=== PATIENT | female | born 2000 | race Two or more races ===

== ENCOUNTER 2024-09-03 11:02 | Outpatient (RCR) | payer MEDICAID, SELFPAY ==
--- NOTE | 2024-07-23 09:32 | XR_ITS ---
Examination: Biophysical profile, ultrasound Date and time of exam: July 23, 2024 0957 hours INDICATIONS: Diagnosis poor growth Technique: Multiple transabdominal sonographic images of the pelvis abdomen obtained. Attention is directed to the breathing movement, gross body movement, amniotic fluid volume and tone. Findings: Amniotic fluid index 8.8 cm Total biophysical profile is 8 of 8. breathing movement is 2. Gross body movement is 2. tone is 2. Qualitative amniotic fluid volume is 2 Impression: Biophysical profile is 8 of 8.
[2024-07-23 10:13] VITALS: BP 100/60; PULSE 73; RESP 18; TEMP 36.8
--- NOTE | 2024-07-27 08:57 | XR_ITS ---
Examination: Biophysical profile, ultrasound Date and time of exam: July 27, 2024 0859 hours INDICATIONS: Diagnosis intrauterine growth retardation Technique: Multiple transabdominal sonographic images of the pelvis abdomen obtained. Attention is directed to the breathing movement, gross body movement, amniotic fluid volume and tone. Findings: Amniotic fluid index 13.7 cm Total biophysical profile is 8 of 8. breathing movement is 2. Gross body movement is 2. tone is 2. Qualitative amniotic fluid volume is 2 Impression: Biophysical profile is 8 of 8.
[2024-07-27 09:24] VITALS: BP 107/62; PULSE 88; RESP 16; TEMP 36.8
--- NOTE | 2024-07-30 09:07 | XR_ITS ---
Examination: Biophysical profile, ultrasound Date and time of exam: July 30, 2024 0911 hours INDICATIONS: Diagnosis intrauterine growth retardation Technique: Multiple transabdominal sonographic images of the pelvis abdomen obtained. Attention is directed to the breathing movement, gross body movement, amniotic fluid volume and tone. Findings: Amniotic fluid index 10.1 cm Total biophysical profile is 8 of 8. breathing movement is 2. Gross body movement is 2. tone is 2. Qualitative amniotic fluid volume is 2 Impression: Biophysical profile is 8 of 8.
[2024-07-30 09:35] VITALS: BP 98/61; PULSE 96; RESP 16; TEMP 36.7
--- NOTE | 2024-08-03 09:05 | XR_ITS ---
Examination: Biophysical profile, ultrasound Date and time of exam: August 03, 2024 0937 hours INDICATIONS: Poor growth diagnosis Technique: Multiple transabdominal sonographic images of the pelvis abdomen obtained. Attention is directed to the breathing movement, gross body movement, amniotic fluid volume and tone. Findings: Amniotic fluid index 10.3 cm Total biophysical profile is 8 of 8. breathing movement is 2. Gross body movement is 2. tone is 2. Qualitative amniotic fluid volume is 2 Impression: Biophysical profile is 8 of 8.
[2024-08-03 10:05] VITALS: BP 109/61; PULSE 72; RESP 16; TEMP 36.7
--- NOTE | 2024-08-13 08:50 | XR_ITS ---
Examination: Biophysical profile, ultrasound Date and time of exam: August 13, 2024 0858 hours INDICATIONS: Poor growth Technique: Multiple transabdominal sonographic images of the pelvis abdomen obtained. Attention is directed to the breathing movement, gross body movement, amniotic fluid volume and tone. Findings: Amniotic fluid index 13.6 cm Total biophysical profile is 8 of 8. breathing movement is 2. Gross body movement is 2. tone is 2. Qualitative amniotic fluid volume is 2 Impression: Biophysical profile is 8 of 8.
[2024-08-13 09:30] VITALS: BP 93/50; PULSE 88; RESP 16; TEMP 36.7
--- NOTE | 2024-08-20 09:09 | XR_ITS ---
Examination: Biophysical profile, ultrasound Date and time of exam: August 20, 2024 1006 hours INDICATIONS: Diagnosis for growth Technique: Multiple transabdominal sonographic images of the pelvis abdomen obtained. Attention is directed to the breathing movement, gross body movement, amniotic fluid volume and tone. Findings: Amniotic fluid index 8.6 cm Total biophysical profile is 8 of 8. breathing movement is 2. Gross body movement is 2. tone is 2. Qualitative amniotic fluid volume is 2 Impression: Biophysical profile is 8 of 8.
[2024-08-20 10:20] VITALS: BP 105/49; PULSE 81; RESP 16; TEMP 36.8
--- NOTE | 2024-08-24 09:19 | XR_ITS ---
Examination: Biophysical profile, ultrasound Date and time of exam: August 24, 2024 0935 hours INDICATIONS: Poor growth Technique: Multiple transabdominal sonographic images of the pelvis abdomen obtained. Attention is directed to the breathing movement, gross body movement, amniotic fluid volume and tone. Findings: Amniotic fluid index 8.7 cm Total biophysical profile is 8 of 8. breathing movement is 2. Gross body movement is 2. tone is 2. Qualitative amniotic fluid volume is 2 Impression: Biophysical profile is 8 of 8.
[2024-08-24 10:12] VITALS: BP 109/66; PULSE 80; RESP 16; TEMP 36.6
--- NOTE | 2024-08-31 08:59 | XR_ITS ---
Examination: Biophysical profile, ultrasound Date and time of exam: August 31, 2024 at 0905 hours INDICATIONS: Poor growth diagnosis Technique: Multiple transabdominal sonographic images of the pelvis abdomen obtained. Attention is directed to the breathing movement, gross body movement, amniotic fluid volume and tone. Findings: Amniotic fluid index 9.3 cm Total biophysical profile is 8 of 8. breathing movement is 2. Gross body movement is 2. tone is 2. Qualitative amniotic fluid volume is 2 Impression: Biophysical profile is 8 of 8.
[2024-08-31 09:39] VITALS: BP 94/45; PULSE 96; RESP 16; TEMP 36.7
--- NOTE | 2024-09-03 11:19 | XR_ITS ---
Examination: Biophysical profile, ultrasound Date and time of exam: September 03, 2024 1142 hours INDICATIONS: Diagnosis poor growth Technique: Multiple transabdominal sonographic images of the pelvis abdomen obtained. Attention is directed to the breathing movement, gross body movement, amniotic fluid volume and tone. Findings: Amniotic fluid index 13.2 cm Total biophysical profile is 8 of 8. breathing movement is 2. Gross body movement is 2. tone is 2. Qualitative amniotic fluid volume is 2 Impression: Biophysical profile is 8 of 8.
[2024-09-03 12:12] VITALS: BP 105/54; PULSE 78; RESP 16; TEMP 36.7
== END 2024-09-03 23:59 | disposition home or self-care (01) ==
LOC: S4S1 11:02
PROVIDERS: Referring Provider Nurse Practitioner Women's Health; Visit Provider Nurse Practitioner Women's Health
DX: O36.5930 Maternal care for other known or suspected poor fetal growth, third trimester, not applicable or unspecified (principal); Z3A.39 39 weeks gestation of pregnancy
CPT/HCPCS: 59025; 76819

== ENCOUNTER 2024-09-03 16:33 | Inpatient (IN) | payer MEDICAID, SELFPAY ==
[2024-09-03] VITALS (10 sets, daily range): BP systolic 0–114; BP diastolic 0–67; PULSE 65–95; RESP 18; TEMP 36.8–36.9; BMI 24.0
[2024-09-03 18:06] LABS: Basophils % (Auto) 0 % (0-2.5); Eosinophils # (Auto) 0.1 Thou/mm3 (0.0-0.5); Eosinophils % (Auto) 2 % (0-10); Hematocrit 31.3 % (36.0-46.0); Hemoglobin 10.7 g/dL (12.0-16.0); Immature Granulocytes % (Auto) 1 % (0-0); Immature Granulocytes Auto 0.04 Thou/mm3 (0.00-0.00); Lymphocytes # (Auto) 1.2 Thou/mm3 (1.0-4.8); Lymphocytes % (Auto) 18 % (10-50); Mean Corpuscular HGB Conc 34.2 g/dl (31.0-37.0); Mean Corpuscular Hemoglobin 30.4 pg (25.0-35.0); Mean Corpuscular Volume 89 fL (80-100); Monocytes # (Auto) 0.5 Thou/mm3 (0.0-0.8); Monocytes % (Auto) 7 % (0-12); Neutrophils % (Auto) 73 % (37-80); Nucleated Red Blood Cell % 0 /100 WBC (0); Platelet Count 259 Thou/mm3 (140-440); RDW Standard Deviation 42.5 fL (36.4-46.3); Red Blood Count 3.52 Miln/mm3 (4.00-5.20); White Blood Count 6.9 Thou/mm3 (3.6-11.0)
--- NOTE | 2024-09-03 18:35 | XR_ITS ---
Examination: age Limited Technique: Limited transabdominal sonographic images pelvis Exam date and time: September 03, 20242021 hrs. Indications: Pelvic contractions beginning 3 days ago Findings: Viable intrauterine gestation cephalic presentation Estimated weight 2888.6 g Cardiac motion 153 BPM Estimated age 36 weeks 6 days Impression: Viable intrauterine gestation cephalic presentation
[2024-09-03 18:49] LABS: Amphetamine/Metham Scrn,Ur OB Negative (Negative); Benzoylecgonine Screen, Ur OB Negative (Negative); Opiate Screen,Urine OB Negative (Negative); THC Screen,Urine OB Negative (Negative)
[2024-09-03 19:53] LABS: Syphilis Nonreactive (Nonreactive)
--- NOTE | 2024-09-03 20:21 | PD.LDHP ---
Documentation for date of: 09/03/24 OB Labor/Induct. HPI History of Present Illness Chief complaint: 24 y/o 39w 5d presents to L&D for IOL due to SGA : 2 Para: 1 Term pregnancies: 1 pregnancies: 0 Living children: 1 History of Abortions: Spontaneous and Elective: 0 History of Vaginal deliveries: 1 History of sections: No History of : No Date of last menstrual period: 11/30/23 ANGELO: 09/05/24 Gestational Age (weeks): 39 Gestational Age (days): 5 Gestational age based on last menstrual period: 39 Indication for induction: medical complication History of present illness: 24 y/o 39w 5d presents to L&D for IOL due to SGA. Fetus was IUGR at 9%ile for a long time, last sono by [facility] showed some growth improvement to 16%ile. Biweekly NST/BPP started at 32 weeks. [facility] recommended delivery at 39 weeks. GBS is neg. EFW 2600g History of Present Dating criteria: LMP confirmed by 1st trimester US Adequate Care: No Ultrasounds: normal 1st trimester US and abnormal US findings (IUGR at 9%ile and at 34 weeks growth improved to 16%ile) Obstetrical complications: growth restriction Labs Maternal Blood Type: O Pos Labs: Negative: RPR, Hepatitis B, Rubella Titre, HIV, Chlamydia, Gonorrhea and Group Beta Strep and Unknown: Herpes Type 1, Herpes Type 2 and Covid-19 Review of Systems Review of Systems Systems Reviewed: All systems reviewed, normal except as documented Past Medical History Surgical History SURGICAL: Negative Section Meds Home Medications and Allergies Home Medications ?Medication ?Instructions ?Recorded ?Confirmed ?Type No Known Home Medications 09/03/24 09/03/24 History Allergies Allergy/AdvReac Type Severity Reaction Status Date / Time No Known Allergies Allergy Verified 09/03/24 17:00 OB Exam Physical Exam Vital signs: Temp Pulse Resp BP 98.3 F 69 18 114/64 09/03/24 19:00 09/03/24 19:58 09/03/24 17:10 09/03/24 19:58 Constitutional Constitutional: no acute distress Routine HEENT Exam Head: Present normocephalic and atraumatic Eye: Present EOMI, PERRL and normal accommodation ENT: Present mucous membranes moist Routine Neck Exam Neck: Present supple, full ROM and trachea midline Routine Respiratory Exam Respiratory: Absent respiratory distress Routine Cardiovascular Exam Cardiovascular: Present RRR Routine Abdominal Exam Abdominal: Present soft and normoactive bowel sounds Comments: Gravid uterus EFW 2600g Routine Exam External: Present normal urethra appearance; Absent lesions Detailed Labor and Delivery Exam Dilation (cm): 1 Effacement (%): 60 Cervix position: posterior station: -3 Consistency: soft Presentation: Vertex Membranes: intact Baseline heart rate: 130 monitor accelerations: 15x15 monitor decelerations: None halfway variability: Moderate (11-25) Contraction frequency (min): irregular Routine Extremities Exam Extremities: Present full ROM Routine Back/Spine/Pelvis Exam Back/Spine: Present full ROM Routine Skin Exam Skin: Present intact, dry and warm Routine Neurological Exam Neurological: Present alert, oriented X3 and CN II-XII intact Routine Psychiatric Exam Psychiatric: Present normal affect and normal thought process OB Results Labs 09/03/24 17:50 Labs: Short CBC 09/03/24 Range/Units 17:50 WBC 6.9 (3.6-11.0) Thou/mm3 Hgb 10.7 L (12.0-16.0) g/dL Hct 31.3 L (36.0-46.0) % Plt Count 259 (140-440) Thou/mm3 OB Assessment & Plan Assessment and Plan (1) Encounter for induction of labor: Status: Acute (2) Small for gestational age fetus affecting management of mother in cornejo in third trimester: Status: Acute (3) Anemia affecting in third trimester: Status: Acute (4) with 39 completed weeks gestation: Status: Acute (5) Rubella non-immune status, antepartum: Status: Acute Additional Plan Induction method: other (Cervidil) Plan: induction, anticipate NVD and consult prn Additional Plan Comment: Routine admit orders Ordered US for position and EFW Consult anesthesia for an epidural Continuous EFM Ok to eat a regular diet until more active labor
[2024-09-03] MEDS: DINOPROSTONE 10 MG VAG.SUPP VAGINAL (22:59)
[2024-09-03] MEDS: RINGERS LACTATED 1000 ML 1,000 ML 100 ML IV (23:03)
[2024-09-04] VITALS (170 sets, daily range): BP systolic 0–184; BP diastolic 0–139; PULSE 52–136; RESP 16–18; TEMP 36.8–37.1; O2SAT 79–100
[2024-09-04] MEDS: TERBUTALINE SULF INJ 1 MG/ML VIAL 0.25 MG SC (05:44)
--- NOTE | 2024-09-04 06:09 | PD.LDPN ---
Documentation for date of: 09/04/24 OB Labor Progress Note Pain Control Pain control: epidural Pelvic Exam Dilation (cm): 4 Effacement (%): 80 station: 0 Amniotic membrane status: Ruptured (AROM- clear) Contractions Monitor mode: External Contraction frequency: 2-3 Contraction duration: 40-60 Contraction intensity: Moderate Status status: Category l Assessment and Plan Assessment: induction ongoing Plan OB labor note: begin Pitocin augmentation (per protocol) Comments: Pt is comfortable with epidural AROM performed- clear fluids Anticipate
[2024-09-04] MEDS: RINGERS LACTATED 1000 ML 1,000 ML 100 ML IV (09:58)
--- NOTE | 2024-09-04 12:05 | OBDSUM_ITS ---
Data (Lynn) Data Hx Section: No Maternal Blood Type: O Pos Rubella Titre: Negative RPR: Non-reactive Labs: Negative: RPR, Hepatitis B, HIV, Chlamydia, Gonorrhea and Group Beta Strep and Unknown: Herpes Type 1 and Herpes Type 2 : 2 Para: 1 Term: 0 : 0 Livin : 0 Delivery Data (Lynn) Labor Data Stimulated/Augmented: No Induction: Yes Method: Cervidil ROM Date: 09/04/24 ROM Time: 06:26 Rupture Type: AROM Amniotic Fluid: Clear Delivery Data EDC: 09/05/24 EDC calculated by:: LMP/early US confirmation Labor Onset Stage 1 Date: 09/04/24 Labor Onset Stage 1 Time: 04:45 Labor Onset Stage 2 Date: 09/04/24 Labor Onset Stage 2 Time: 11:14 Delivery Date: 09/04/24 Delivery Time: 11:50 Gestational age (weeks): 39 Gestational age (days): 6 Placenta Delivery Date: 09/04/24 Placenta Delivery Time: 11:54 Delivered by: Frannie Hernandez Delivery nurse: Sheryl Hernández Cloud Systems Architect at delivery: No Support person(s) at delivery: FOB Other staff at delivery: 2nd Nurse Other staff at delivery: Keri Roy Delivery Method Delivery: Vaginal Delivery Type: Spontaneous Presentation: Vertex Position: OA Anesthesia Type Primary Anesthesia: Epidural Delivery Room Medications Other Intrapartum Medications: No Post Delivery Medications N/A: No Placenta Placenta Delivery: Spontaneous Placenta Cultures Obtained: No Placenta Sent for Examination: No Cord Sample: Cord Blood Obtained Episiotomy Episiotomy: None Umbilical Cord Umbilical Vessels: 3 Nuchal Cord: Not Applicable Body Cord: Not Applicable Additional Procedures After a couple of pushes patient had an of a viable female infant. 's anterior shoulder delivered with gentle downward traction subsequent deliver the posterior shoulder and the body without complications. Infant placed on mother's abdomen. Vigorous cry upon delivery. Cord was clamped. Cut by FOB. Cord blood obtained. Three-vessel cord noted. Placenta expelled spontaneously and intact. No lacerations noted. Perineum intact. Excellent hemostasis achieved after vigorous fundal massage and removal of clots from the posterior fornix. EBL 100. Sponge and needle count correct. Mother and baby stable, skin to skin and bonding in LDR. Data (Lynn) [place] Data Gender: Female Identification Band Number: [id number] Infant Weight Grams: 3190 1 Minute Total: 9 5 Minute Total: 9
[2024-09-04] MEDS: OXYTOCIN in NS 20 units 20 UNIT/1,000 ML BAG 125 UNIT IV (12:12)
[2024-09-04] MEDS: MINERAL OIL 30 ML UDC TOP (12:13)
[2024-09-04] MEDS: ACETAMINOPHEN 325 MG TABLET 650 MG PO (16:51)
[2024-09-04 17:40] LABS: Basophils % (Auto) 0 % (0-2.5); Eosinophils % (Auto) 0 % (0-10); Hematocrit 32.8 % (36.0-46.0); Hemoglobin 11.2 g/dL (12.0-16.0); Immature Granulocytes % (Auto) 0 % (0-0); Immature Granulocytes Auto 0.05 Thou/mm3 (0.00-0.00); Lymphocytes % (Auto) 7 % (10-50); Mean Corpuscular HGB Conc 34.1 g/dl (31.0-37.0); Mean Corpuscular Hemoglobin 30.4 pg (25.0-35.0); Mean Corpuscular Volume 89 fL (80-100); Monocytes # (Auto) 0.7 Thou/mm3 (0.0-0.8); Monocytes % (Auto) 5 % (0-12); Neutrophils # (Auto) 12.9 Thou/mm3 (1.8-7.7); Neutrophils % (Auto) 88 % (37-80); Nucleated Red Blood Cell % 0 /100 WBC (0); Platelet Count 263 Thou/mm3 (140-440); RDW Standard Deviation 43.1 fL (36.4-46.3); Red Blood Count 3.69 Miln/mm3 (4.00-5.20); White Blood Count 14.7 Thou/mm3 (3.6-11.0)
--- NOTE | 2024-09-04 18:47 | PC.NURSE ---
CHRISTINE Kathleen called and updated with cbc result, new orders received.
[2024-09-04] MEDS: ceFAZolin/D5W 2 GM IV 2 GM/100 ML BAG IV (19:12)
[2024-09-05] VITALS: BP 102/63; PULSE 72; RESP 16; TEMP 37; O2SAT 98
[2024-09-05] MEDS: MEASLES, MUMPS & RUBELLA VACC 0.5 ML VIAL SCi (01:56)
[2024-09-05] MEDS: IBUPROFEN TAB 400 MG TABLET 800 MG PO (02:07)
--- NOTE | 2024-09-05 02:43 | PC.NURSE ---
09/05/24 0030: Educated pt. using pump stitcher services #[id number] on MMR vaccination, pt. signed consent form and has no futher questions.
[2024-09-05 04:00] VITALS: BP 94/59; PULSE 69; RESP 16; TEMP 36.9; O2SAT 98
[2024-09-05] MEDS: HYDROcodone/APAP 5/325 TABLET 1 TAB PO (07:41)
[2024-09-05] MEDS: DOCUSATE SOD 100 MG CAPSULE PO (07:42)
[2024-09-05 08:00] VITALS: BP 114/74; PULSE 67; RESP 16; TEMP 36.9; O2SAT 97
--- NOTE | 2024-09-05 08:38 | PD.LDDS ---
DS: Providers Provider Date of admission: 09/03/24 16:33 Primary care physician: Physician No Primary/Family Admitting Provider: Frannie Hernandez CNM Attending Provider on Admission: Frannie Hernandez CNM Attending Provider on DC: Frannie Hernandez CNM Discharging Provider: Frannie Hernandez CNM Anticipated date of discharge: 09/05/24 DS: Diagnosis Discharge Diagnosis (1) Normal spontaneous vaginal delivery: Status: Acute (2) Encounter for care of lactating mother: Status: Acute (3) Rubella non-immune status, antepartum: Status: Acute (4) Small for gestational age fetus affecting management of mother in cornejo in third trimester: Status: Acute (5) Encounter for induction of labor: Status: Acute (6) with 39 completed weeks gestation: Status: Acute (7) Anemia affecting in third trimester: Status: Acute Problem List Completed Was Problem List Reviewed/Reconciled?: Yes Summary/Hosp Course Brief History: 24 y/o 39w 5d presents to L&D for IOL due to SGA. Fetus was IUGR at 9%ile for a long time, last sono by [facility] showed some growth improvement to 16%ile. Biweekly NST/BPP started at 32 weeks. [facility] recommended delivery at 39 weeks. GBS is neg. EFW 2600g 09/04/24: After a couple of pushes patient had an of a viable female . Infant's anterior shoulder delivered with gentle downward traction subsequent deliver the posterior shoulder and the body without complications. placed on mother's abdomen. Vigorous cry upon delivery. Cord was clamped. Cut by FOB. Cord blood obtained. Three-vessel cord noted. Placenta expelled spontaneously and intact. No lacerations noted. Perineum intact. Excellent hemostasis achieved after vigorous fundal massage and removal of clots from the posterior fornix. EBL 100. Sponge and needle count correct. Mother and baby stable, skin to skin and bonding in LDR. 09/05/24: day 1. Patient is stable and afebrile doing well and denies dizziness shortness of breath or pain. Patient reports minimal lochia. Patient is breast-feeding. Uterus nontender fundus firm minimal lochia. Eager to go home. Discharge instructions given. Patient to follow-up with Frannie Hernandez CNM in 3 weeks Peripartum Data Delivery Method: Normal Vaginal Delivery Episiotomy Description: None Laceration Description: no complications: none 1: Gender: Female Disposition of : home Status at Discharge Cognitive/behavioral status at discharge: Alert and oriented times Functional status at discharge: independent ambulation Overall status at discharge: patient is progressing back to baseline Time Spent with Patient Time attestation: Total time spent providing and/or coordinating discharge services: Time spent: Greater than 30 minutes Exam Vital Signs Temp Pulse Resp BP Pulse Ox 98.8 F 118 H 16 124/63 79 L 09/04/24 10:46 09/04/24 11:55 09/04/24 10:46 09/04/24 11:55 09/04/24 11:50 Constitutional Constitutional: no acute distress Routine HEENT Exam Head: Present normocephalic and atraumatic Eye: Present EOMI, PERRL and normal accommodation ENT: Present mucous membranes moist Routine Neck Exam Neck: Present supple, full ROM and trachea midline Routine Respiratory Exam Respiratory: Present chest non-tender, lungs clear, normal breath sounds and no resp distress Routine Cardiovascular Exam Cardiovascular: Present RRR Routine Abdominal Exam Abdominal: Present soft and normoactive bowel sounds; Absent tenderness or distended Comments: Uterus nontender fundus firm Routine Exam Patient deferred: external exam Routine Extremities Exam Extremities: Present full ROM, pulses intact and normal capillary refill; Absent calf tenderness or tenderness Routine Back/Spine/Pelvis Exam Back/Spine: Present full ROM Routine Skin Exam Skin: Present intact, dry and warm Routine Neurological Exam Neurological: Present alert, oriented X3 and CN II-XII intact Routine Psychiatric Exam Psychiatric: Present normal affect and normal thought process Discharge Plan Plan Patient Disposition: HOME (Self Care) Patient condition on transfer: Stable Prescriptions/Referrals Prescriptions/Med Rec: New docusate sodium [Colace] 100 mg capsule 100 mg PO BID Qty: 60 0RF ibuprofen 600 mg tablet 600 mg PO Q6H PRN (Reason: pain) Qty: 90 0RF lanolin 50 % ointment 1 applic topical TID PRN (Reason: skin irritation) Qty: 15 0RF Referrals: No Primary/Family,Physician [Primary Care Provider] - Patient/Caregiver Discharge Instructions Meds to Beds: No Discharge Activity: activity as tolerated Other Discharge Activity Instructions:: Follow-up with Frannie Hernandez CNM in 3 weeks Education Materials: After a Vaginal , Pain After Childbirth, : Caring for Yourself Print Language: Tamazight Stand Alone Forms: Meeta Award Info., Patient Portal Info Letter Vaccines Vaccines Given During Stay: MMR Discharge Order Discharge Orders: Discharge (Routine); Ordered 09/05/24 Ordered By: Frannie Hernandez Planned Discharge Date 09/05/24
[2024-09-05 09:10] LABS: Basophils % (Auto) 0 % (0-2.5); Eosinophils # (Auto) 0.1 Thou/mm3 (0.0-0.5); Eosinophils % (Auto) 1 % (0-10); Hematocrit 32.7 % (36.0-46.0); Immature Granulocytes % (Auto) 0 % (0-0); Immature Granulocytes Auto 0.04 Thou/mm3 (0.00-0.00); Lymphocytes # (Auto) 1.5 Thou/mm3 (1.0-4.8); Lymphocytes % (Auto) 14 % (10-50); Mean Corpuscular HGB Conc 33.6 g/dl (31.0-37.0); Mean Corpuscular Volume 89 fL (80-100); Monocytes # (Auto) 0.5 Thou/mm3 (0.0-0.8); Monocytes % (Auto) 4 % (0-12); Neutrophils # (Auto) 8.6 Thou/mm3 (1.8-7.7); Neutrophils % (Auto) 80 % (37-80); Nucleated Red Blood Cell % 0 /100 WBC (0); Platelet Count 250 Thou/mm3 (140-440); RDW Standard Deviation 44.7 fL (36.4-46.3); Red Blood Count 3.67 Miln/mm3 (4.00-5.20); White Blood Count 10.7 Thou/mm3 (3.6-11.0)
[2024-09-05 11:30] VITALS: BP 108/67; PULSE 62; RESP 18; TEMP 36.9; O2SAT 98
--- NOTE | 2024-09-05 14:40 | PC.NURSE ---
Patient cleared by manager social media
--- NOTE | 2024-09-05 16:52 | PC.CC ---
June Tim is a 24-year-old female admitted for labor and delivery care. [employer] Sprayer Prote[employer]ating made contact with Pt at bedside to complete ob assessment and discuss discharge disposition. Role and reason for the contact was explained to Pt. Demographic information was verified. Pt identified Father of Child as surrogate decision maker. Pt is independent with all ADLs, no source of DME. PCP is [facility]. At time of discharge patient will return home, [facility] will provide transportation. Discharge Plan: Home Next of Kin: YESSY PCP: [facility]
== END 2024-09-05 14:59 | disposition home or self-care (01) | DRG 560 ==
LOC: S4SX 09-04 13:37 → S4NX 09-04 13:58
PROVIDERS: Nurse Practitioner Women's Health; Admitting Provider Obstetrics & Gynecology; Visit Provider Obstetrics & Gynecology
DX: O36.5930 Maternal care for other known or suspected poor fetal growth, third trimester, not applicable or unspecified (principal); O99.02 Anemia complicating childbirth; Z23 Encounter for immunization; Z37.0 Single live birth; Z3A.39 39 weeks gestation of pregnancy; Z78.9 Other specified health status
CPT/HCPCS: 36415; 76815; 80307; 85025; 86780; 86850; 86900; 86901; 90707; J0689; J2590; J2795; J3105; J7120; A9270; J0690